=== PATIENT | female | born 1975 | race Caucasian/White ===

== ENCOUNTER 2017-02-03 14:13 | Inpatient (IN) | payer OTHER ==
[~2017-02-03] VITALS: Ht 170.2 cm; Wt 82.3 kg
[2017-02-03 18:04] LABS: HEMATOCRIT 41.2 % (36.0-46.0); MCH 27.1 PG (29.0-34.0); MCHC 32.3 G/DL (30.0-36.0); MCV 83.9 FL (83-99); MEAN PLAT.VOLUME 10.3 uM^3 (9.5-12.4); PLATELET COUNT 319 K/uL (156-360); RBC DIS.WIDTH-CV 13.2 % (11.8-14.6); RBC DIS.WIDTH-SD 40.9 % (39-53); RED BLOOD COUNT 4.91 M/uL (3.80-5.20); WHITE BLOOD COUNT 8.9 K/uL (4.1-10.2)
[2017-02-03 18:12] LABS: CHLORIDE 107 mEq/L (99-109); POTASSIUM 4.1 mEq/L (3.7-5.4); SODIUM 142 mEq/L (136-147)
[2017-02-03 18:13] LABS: GLUCOSE 97 mg/dL (70-99)
[2017-02-03 18:15] LABS: ANION GAP 9 MEQ/L (2-14)
[2017-02-03 18:17] LABS: GFR ESTIMATE (CALCULATED) > 59 mL/min/
[2017-02-03 18:18] LABS: UREA NITROGEN (BUN) 15 mg/dL (9-23)
[2017-02-03 20:10] LABS: INTER. NORMALIZED RATIO 1.1; PROTHROMBIN TIME 10.8 (9.2-11.2); PTT 27.1 (25-32)
[2017-02-03 21:46] VITALS: BP 111/72
[2017-02-04 03:43] VITALS: BP 107/58
[2017-02-04 06:41] LABS: MCH 27.9 PG (29.0-34.0); MCHC 32.8 G/DL (30.0-36.0); MCV 85.2 FL (83-99); MEAN PLAT.VOLUME 10.6 uM^3 (9.5-12.4); PLATELET COUNT 293 K/uL (156-360); RBC DIS.WIDTH-CV 13.5 % (11.8-14.6); RBC DIS.WIDTH-SD 41.7 % (39-53); RED BLOOD COUNT 4.58 M/uL (3.80-5.20)
[2017-02-04 07:16] LABS: ANION GAP 5 MEQ/L (2-14); CHLORIDE 105 MEQ/L (99-109); GFR ESTIMATE (CALCULATED) > 59 mL/min/; GLUCOSE 85 mg/dL (70-99); POTASSIUM 4.2 MEQ/L (3.7-5.4); SAMPLE HEMOLYSIS CHECK 0; SAMPLE ICTERIC CHECK 0; SAMPLE LIPEMIA CHECK 0; SODIUM 140 MEQ/L (136-147); UREA NITROGEN (BUN) 13 mg/dL (9-23)
[2017-02-04 07:41] VITALS: BP 115/62
[2017-02-04 12:05] VITALS: BP 116/72
[2017-02-04] MEDS ORDERED: COUMADIN1 MG PO (15:34)
[2017-02-04 16:47] VITALS: BP 108/67
[2017-02-04 20:00] VITALS: BP 107/65
[2017-02-04 23:26] VITALS: BP 114/70
[2017-02-05 04:28] VITALS: BP 107/72
[2017-02-05 05:36] LABS: INTER. NORMALIZED RATIO 1.1; PROTHROMBIN TIME 11.2 (9.2-11.2)
[2017-02-05 08:40] VITALS: BP 113/68
[2017-02-05] MEDS ORDERED: LOVENOX80 MG/0.8 SC (10:19)
[2017-02-05] MEDS ORDERED: COUMADIN5 MG PO (10:19)
[2017-02-05] MEDS ORDERED: TRAMADOL HCL50 MG PO (10:19)
[2017-02-05 15:23] VITALS: BP 101/60
[2017-02-05 20:07] VITALS: BP 103/66
[2017-02-05 23:30] VITALS: BP 136/78
[2017-02-06] VITALS (7 sets, daily range): BP systolic 96–124; BP diastolic 55–78
[2017-02-06 00:22] LABS: HEMATOCRIT 42.3 % (36.0-46.0); MCH 26.9 PG (29.0-34.0); MCHC 32.4 G/DL (30.0-36.0); MCV 82.9 FL (83-99); RBC DIS.WIDTH-CV 13.2 % (11.8-14.6); RBC DIS.WIDTH-SD 39.8 % (39-53); WHITE BLOOD COUNT 11.9 K/uL (4.1-10.2)
[2017-02-06 00:23] LABS: MEAN PLAT.VOLUME 10.6 uM^3 (9.5-12.4)
[2017-02-06 00:24] LABS: PLATELET COUNT 412 K/uL (156-360)
[2017-02-06 03:57] LABS: ADD MIUA? YES; BILIRUBIN NEGATIVE; BLOOD SMALL; COLOR YELLOW ((YELLOW)); GLUCOSE (STRIP) NEGATIVE; KETONES 5; LEUKOCYTES TRACE; NITRITE NEGATIVE; PROTEIN (STRIP) NEGATIVE; SPECIFIC GRAVITY 1.013 (1.000-1.030); UROBILINOGEN 0.2 MG/DL (0.2-1.0)
[2017-02-06 04:14] LABS: BACTERIA NONE SEEN /HPF; EPITHELIAL CELLS RARE /HPF; MUCUS TRACE /LPF; RED BLOOD CELLS 0-5 /HPF (0-5); UCUL ADDED? NO; WHITE BLOOD CELLS 0-5 /HPF (0-5)
[2017-02-06 05:19] LABS: CHLORIDE 110 mEq/L (99-109); POTASSIUM 4.6 mEq/L (3.7-5.4); SODIUM 139 mEq/L (136-147)
[2017-02-06 05:22] LABS: ANION GAP 6 MEQ/L (2-14); INTER. NORMALIZED RATIO 1.1; PROTHROMBIN TIME 11.2 (9.2-11.2)
[2017-02-06 05:24] LABS: GFR ESTIMATE (CALCULATED) > 59 mL/min/
[2017-02-06 05:25] LABS: UREA NITROGEN (BUN) 8 mg/dL (9-23)
[2017-02-06 05:28] LABS: GLUCOSE 114 mg/dL (70-99)
[2017-02-06] MEDS ORDERED: LOVENOX80 MG/0.8 SC (11:57)
[2017-02-07 00:20] VITALS: BP 110/62
[2017-02-07 04:34] VITALS: BP 110/64
[2017-02-07 06:01] LABS: INTER. NORMALIZED RATIO 1.1; PROTHROMBIN TIME 11.4 (9.2-11.2)
[2017-02-07 09:30] VITALS: BP 116/71
[2017-02-07 12:00] VITALS: BP 124/76
[2017-02-07 17:00] VITALS: BP 119/69
[2017-02-07 19:30] VITALS: BP 109/67
[2017-02-08 00:20] VITALS: BP 110/67
[2017-02-08 03:36] VITALS: BP 110/69
[2017-02-08 06:14] LABS: INTER. NORMALIZED RATIO 1.2; PROTHROMBIN TIME 12.3 (9.2-11.2)
[2017-02-08 09:00] VITALS: BP 102/64
[2017-02-08 09:17] LABS: ANION GAP 6 MEQ/L (2-14); CHLORIDE 104 MEQ/L (99-109); GFR ESTIMATE (CALCULATED) > 59 mL/min/; GLUCOSE 90 mg/dL (70-99); POTASSIUM 4.3 MEQ/L (3.7-5.4); SAMPLE HEMOLYSIS CHECK 0; SAMPLE ICTERIC CHECK 0; SAMPLE LIPEMIA CHECK 0; SODIUM 140 MEQ/L (136-147); UREA NITROGEN (BUN) 13 mg/dL (9-23)
[2017-02-08 09:20] LABS: HEMATOCRIT 42.6 % (36.0-46.0); MCH 26.9 PG (29.0-34.0); MCHC 31.7 G/DL (30.0-36.0); MCV 84.9 FL (83-99); MEAN PLAT.VOLUME 10.5 uM^3 (9.5-12.4); PLATELET COUNT 356 K/uL (156-360); RBC DIS.WIDTH-CV 13.3 % (11.8-14.6); RBC DIS.WIDTH-SD 41.1 % (39-53); RED BLOOD COUNT 5.02 M/uL (3.80-5.20); WHITE BLOOD COUNT 7.3 K/uL (4.1-10.2)
[2017-02-08] MEDS ORDERED: LOVENOX80 MG/0.8 SC (13:19)
[2017-02-08] MEDS ORDERED: COUMADIN1 MG PO ×3 (13:19→13:55)
[2017-02-08] MEDS ORDERED: DIAZEPAM5 MG PO (13:19)
[2017-02-08] MEDS ORDERED: COUMADIN5 MG PO (13:19)
[2017-02-08 15:07] VITALS: BP 117/75
[2017-02-09] MEDS ORDERED: KEFLEX500 MG PO (19:23)
== END 2017-02-08 16:19 | disposition home or self-care (01) | DRG 299 ==
LOC: EME 14:13 → 5WEST 20:15 → EDOF 20:15 → 5WEST 21:30 → 4EAST 02-06 04:10
PROVIDERS: Hospitalist; Internal Medicine; Nurse Practitioner Adult Health; Physician Assistant; Physician Assistant Medical
DX: I82.412 Acute embolism and thrombosis of left femoral vein (principal); I26.99 Other pulmonary embolism without acute cor pulmonale; I82.4Z2 Acute embolism and thrombosis of unspecified deep veins of left distal lower extremity; G89.11 Acute pain due to trauma; S89.92XD Unspecified injury of left lower leg, subsequent encounter; S70.12XD Contusion of left thigh, subsequent encounter; V43.92XA Unspecified car occupant injured in collision with other type car in traffic accident, initial encounter; M22.42 Chondromalacia patellae, left knee; F41.9 Anxiety disorder, unspecified; M25.462 Effusion, left knee; Z79.01 Long term (current) use of anticoagulants; Z82.49 Family history of ischemic heart disease and other diseases of the circulatory system; Y92.410 Unspecified street and highway as the place of occurrence of the external cause
CPT/HCPCS: 71010; 71020; 71275; 73721; 80048; 80053; 81003; 83605; 83880; 85027; 85610; 85730; 87040; 93005; 93971; 99281; 99284; G0378; G8978 GP CH; G8979 GP CH; G8980 GP CH; G8987 GO CH; G8988 GO CH; G8989 GO CH; J0456; J0692; J1650; J7040; J7050

== ENCOUNTER 2017-02-09 15:17 | Emergency (ER) | payer OTHER ==
[~2017-02-09] VITALS: Ht 170.2 cm; Wt 82.2 kg
[~2017-02-09 15:17] MED LIST: COUMADIN1 MG PO; COUMADIN5 MG PO; DIAZEPAM5 MG PO; LOVENOX80 MG/0.8 SC; TRAMADOL HCL50 MG PO
[2017-02-09 17:26] LABS: ADD MIUA? YES; BILIRUBIN NEGATIVE; BLOOD SMALL; COLOR AMBER ((YELLOW)); GLUCOSE (STRIP) NEGATIVE; KETONES NEGATIVE; LEUKOCYTES NEGATIVE; NITRITE NEGATIVE; PROTEIN (STRIP) NEGATIVE; UROBILINOGEN 0.2 MG/DL (0.2-1.0)
[2017-02-09 19:14] LABS: AMORPHOUS URATES CRYSTALS 1+; BACTERIA 2+ /HPF; CASTS NONE SEEN /LPF; CRYSTALS PRESENT; EPITHELIAL CELLS 1+ /HPF; MUCUS NONE SEEN /LPF; RED BLOOD CELLS 0-5 /HPF (0-5); WHITE BLOOD CELLS 0-5 /HPF (0-5)
[2017-02-09] MEDS ORDERED: KEFLEX500 MG PO (19:23)
[2017-02-09 19:31] VITALS: BP 125/89
== END 2017-02-09 19:32 | disposition home or self-care (01) ==
LOC: RME 15:17 → EME 15:17 → RME 19:32
PROVIDERS: Physician Assistant
DX: N39.0 Urinary tract infection, site not specified (principal); Z86.718 Personal history of other venous thrombosis and embolism; Z86.711 Personal history of pulmonary embolism; Z79.01 Long term (current) use of anticoagulants
CPT/HCPCS: 81003; 87086; 99281; 99284

== ENCOUNTER 2017-02-21 23:04 | Emergency (ER) | payer OTHER ==
[~2017-02-21] VITALS: Ht 172.7 cm; Wt 84.5 kg
[~2017-02-21 23:04] MED LIST changes: +KEFLEX500 MG PO
[2017-02-22 02:18] LABS: HEMATOCRIT 40.6 % (36.0-46.0); MCH 26.7 PG (29.0-34.0); MCV 83.5 FL (83-99); MEAN PLAT.VOLUME 10.2 uM^3 (9.5-12.4); PLATELET COUNT 308 K/uL (156-360); RBC DIS.WIDTH-CV 13.5 % (11.8-14.6); RBC DIS.WIDTH-SD 41.1 % (39-53); RED BLOOD COUNT 4.86 M/uL (3.80-5.20); WHITE BLOOD COUNT 7.9 K/uL (4.1-10.2)
[2017-02-22 02:27] LABS: INTER. NORMALIZED RATIO 2.1
[2017-02-22 02:28] LABS: PROTHROMBIN TIME 21.9 (9.2-11.2)
[2017-02-22 02:33] LABS: CHLORIDE 105 mEq/L (99-109); POTASSIUM 3.8 mEq/L (3.7-5.4); SODIUM 140 mEq/L (136-147)
[2017-02-22 02:35] LABS: GLUCOSE 89 mg/dL (70-99)
[2017-02-22 02:37] LABS: ANION GAP 8 MEQ/L (2-14); TOTAL BILIRUBIN 0.3 mg/dL (0.0-1.0)
[2017-02-22 02:39] LABS: ALKALINE PHOSPHATASE 60 IU/L (3-129); GFR ESTIMATE (CALCULATED) > 59 mL/min/
[2017-02-22 02:40] LABS: UREA NITROGEN (BUN) 11 mg/dL (9-23)
[2017-02-22 02:41] LABS: TROP-I INTERPRETATION NEGATIVE; TROPONIN-I < 0.01 ng/mL (0.0-0.30)
[2017-02-22 03:23] LABS: ADD MIUA? YES; BILIRUBIN NEGATIVE; BLOOD NEGATIVE; COLOR YELLOW ((YELLOW)); GLUCOSE (STRIP) NEGATIVE; KETONES NEGATIVE; LEUKOCYTES TRACE; NITRITE NEGATIVE; PROTEIN (STRIP) NEGATIVE; UROBILINOGEN 0.2 MG/DL (0.2-1.0)
[2017-02-22 03:27] LABS: BACTERIA NONE SEEN /HPF; EPITHELIAL CELLS RARE /HPF; MUCUS TRACE /LPF; RED BLOOD CELLS 0-5 /HPF (0-5); UCUL ADDED? NO; WHITE BLOOD CELLS 0-5 /HPF (0-5)
[2017-02-22 03:42] VITALS: BP 124/88
== END 2017-02-22 03:43 | disposition home or self-care (01) ==
LOC: EME 23:04
PROVIDERS: Physician Assistant
DX: R42 Dizziness and giddiness (principal); R00.2 Palpitations; I26.99 Other pulmonary embolism without acute cor pulmonale; Z86.718 Personal history of other venous thrombosis and embolism; Z86.711 Personal history of pulmonary embolism; Z79.01 Long term (current) use of anticoagulants
CPT/HCPCS: 71020; 80053; 81003; 84484; 85027; 85610; 93005; 99281; 99283

== ENCOUNTER → 2017-03-15 | Outpatient (CLI) | payer OTHER | END | disposition home or self-care (01) | LOC: RAD 12:32 | DX: I82.5Y2 Chronic embolism and thrombosis of unspecified deep veins of left proximal lower extremity (principal) | CPT/HCPCS: 93971 ==

== ENCOUNTER → 2017-04-12 | Outpatient (CLI) | payer OTHER | END | disposition home or self-care (01) | LOC: RAD 08:18 | DX: D71 Functional disorders of polymorphonuclear neutrophils (principal); D18.09 Hemangioma of other sites; K80.20 Calculus of gallbladder without cholecystitis without obstruction; R93.2 Abnormal findings on diagnostic imaging of liver and biliary tract | CPT/HCPCS: 71275; 93971 ==

== ENCOUNTER 2017-09-26 03:19 | Emergency (ER) | payer OTHER ==
[~2017-09-26] VITALS: Ht 170.2 cm; Wt 80.4 kg
[2017-09-26 03:55] LABS: HEMATOCRIT 41.8 % (36.0-46.0); HEMOGLOBIN 13.4 G/DL (11.9-15.5); MCH 26.9 PG (29.0-34.0); MCHC 32.1 G/DL (30.0-36.0); MCV 83.9 FL (83-99); PLATELET COUNT 321 K/uL (156-360); RBC DIS.WIDTH-SD 42.7 % (39-53); RED BLOOD COUNT 4.98 M/uL (3.80-5.20); WHITE BLOOD COUNT 8.8 K/uL (4.1-10.2)
[2017-09-26 04:02] LABS: CHLORIDE 107 mEq/L (99-109); POTASSIUM 3.8 mEq/L (3.7-5.4); SODIUM 138 mEq/L (136-147)
[2017-09-26 04:04] LABS: GLUCOSE 93 mg/dL (70-99)
[2017-09-26 04:08] LABS: CREATININE 0.7 mg/dL (0.6-1.3); GFR ESTIMATE (CALCULATED) > 59 mL/min/
[2017-09-26 04:09] LABS: UREA NITROGEN (BUN) 13 mg/dL (9-23)
[2017-09-26 04:16] LABS: TROP-I INTERPRETATION NEGATIVE; TROPONIN-I < 0.01 ng/mL (0.0-0.30)
[2017-09-26 04:17] LABS: QUANTITATIVE HCG < 4.0 MIU/ML
[2017-09-26 05:45] VITALS: BP 116/72
== END 2017-09-26 05:48 | disposition home or self-care (01) ==
LOC: EME 03:19
DX: I82.532 Chronic embolism and thrombosis of left popliteal vein (principal); I87.2 Venous insufficiency (chronic) (peripheral); R07.9 Chest pain, unspecified; Z86.718 Personal history of other venous thrombosis and embolism; Z86.711 Personal history of pulmonary embolism
CPT/HCPCS: 71046; 71275; 80048; 84484; 84702; 85027; 85379; 93005; 93971; 99281; 99285